=== PATIENT | male | born 1975 | race African-American/Black ===

== ENCOUNTER 2017-11-09 17:09 | Emergency (ER) | payer OTHER ==
[~2017-11-09] VITALS: Ht 162.6 cm; Wt 72.6 kg
[~2017-11-09 17:09] MED LIST: AMLODIPINE BESY10 MG PO; CLEOCIN HCL150 MG PO; COMPAZINE10 MG PO; GABAPENTIN 100100 MG PO; LISINOPRIL10 MG PO; METFORMIN HCL500 MG PO; NAPROSYN500 MG PO; PERCOCET 5-3251 EACH PO; PRILOSEC20 MG PO; TRAMADOL 50 MG50 MG PO; ZPAK PO
[2017-11-09 18:22] LABS: HEMATOCRIT 42.8 % (42.0-52.0); HEMOGLOBIN 14.3 gm/dL (14.0-18.0); MCHC 33.5 g/dL (28.0-37.0); MCV 86.8 fL (80.0-100.0); RBC 4.93 mil/uL (4.50-6.00); RDW 16.5 % (10.5-14.5); WBC 7.1 thou/uL (4.0-11.0)
[2017-11-09 18:31] LABS: CALCIUM 8.7 mg/dL (8.5-10.1); CREATININE 1.5 mg/dL (0.7-1.3); POTASSIUM 4.2 mmol/L (3.5-5.1)
[2017-11-09 18:35] LABS: SALICYLATE 9.4 mg/dL (2.8-20.0)
[2017-11-09 18:36] LABS: PROTIME 10.5 Seconds (9.3-11.4)
[2017-11-09] MEDS ORDERED: BUTALB-APAP-CA1 EACH PO (18:57)
[2017-11-09] MEDS ORDERED: CYCLOBENZAPRINE5 MG PO (18:57)
[2017-11-09 19:10] VITALS: BP 113/75
== END 2017-11-09 19:10 | disposition home or self-care (01) ==
LOC: ER 17:09
PROVIDERS: Physician Assistant
DX: G89.29 Other chronic pain (principal); R51 Headache; S16.1XXA Strain of muscle, fascia and tendon at neck level, initial encounter; I10 Essential (primary) hypertension; N40.0 Benign prostatic hyperplasia without lower urinary tract symptoms; K21.9 Gastro-esophageal reflux disease without esophagitis; G62.9 Polyneuropathy, unspecified; Z88.0 Allergy status to penicillin; Z88.8 Allergy status to other drugs, medicaments and biological substances; X58.XXXA Exposure to other specified factors, initial encounter; Y93.89 Activity, other specified; Y92.89 Other specified places as the place of occurrence of the external cause; Y99.8 Other external cause status

== ENCOUNTER 2018-04-08 17:38 | Emergency (ER) | payer OTHER ==
[~2018-04-08] VITALS: Ht 165.1 cm; Wt 68.0 kg
[~2018-04-08 17:38] MED LIST changes: +BUTALB-APAP-CA1 EACH PO; +CYCLOBENZAPRINE5 MG PO
[2018-04-08] MEDS ORDERED: MOBIC7.5 MG PO (17:55)
[2018-04-08] MEDS ORDERED: NORCO 5-325 TA1 EACH PO (17:55)
[2018-04-08] MEDS ORDERED: CLEOCIN HCL150 MG PO (17:55)
[2018-04-08 18:19] VITALS: BP 131/74
== END 2018-04-08 18:26 | disposition home or self-care (01) ==
LOC: ER 17:38
DX: K02.9 Dental caries, unspecified (principal); R51 Headache; F17.210 Nicotine dependence, cigarettes, uncomplicated; G62.9 Polyneuropathy, unspecified; I10 Essential (primary) hypertension; N40.0 Benign prostatic hyperplasia without lower urinary tract symptoms; K21.9 Gastro-esophageal reflux disease without esophagitis; Z88.0 Allergy status to penicillin; Z88.8 Allergy status to other drugs, medicaments and biological substances; Z88.2 Allergy status to sulfonamides